=== PATIENT | male | born 1965 | race African-American/Black ===

== ENCOUNTER 2018-12-11 23:47 | Day surgery (SDC) | payer OTHER ==
[~2018-12-11] VITALS: Ht 190.5 cm; Wt 122.5 kg
--- NOTE | 2018-12-12 00:50 | NUR ---
Pt. ambulated into ED w/ c/o feeling like something stuck in throat, states he was eating very large shrimp a few hours ago and began to choke on one, vomited multiple times and still has the feeling that something is stuck, A/Ox4, RR even and unlabored, speaks in clear and complete sentences, denies SOB,
--- NOTE | 2018-12-12 00:51 | NUR ---
at bedside for MSE
--- NOTE | 2018-12-12 03:40 | NUR ---
PAGED [facility]. WAITING FOR FILI POPE NP TO CALL BACK.
--- NOTE | 2018-12-12 04:04 | NUR ---
FILI POPE [facility] FOR GI HAS NOT RETURNED CALL. RE PAGED,WAITING FOR CALL BACK.
--- NOTE | 2018-12-12 04:30 | NUR ---
Felicita Wolf on phone w/ Dr. Gentile
--- NOTE | 2018-12-12 04:50 | NUR ---
Blood specimen drawn and given to phleb. tech.
--- NOTE | 2018-12-12 04:59 | NUR ---
Pt. escorted off unit for CXR by Rad. tech.
[2018-12-12 05:03] LABS: BASOPHILS % (AUTO) 0.6 % (0.0-2.0); EOSINOPHILS # (AUTO) 0.4 K/uL (0.0-0.7); EOSINOPHILS % (AUTO) 5.5 % (0.0-7.0); HEMATOCRIT 46.4 % (36.7-47.1); HEMOGLOBIN 15.2 g/dL (12.5-16.3); LYMPHOCYTES # (AUTO) 2.2 K/uL (20.0-40.0); LYMPHOCYTES % (AUTO) 33.3 % (20.5-51.5); MEAN CORPUSCULAR HEMOGLOBIN 28.7 uug (23.8-33.4); MEAN CORPUSCULAR HGB CONC 33 g/dL (32.5-36.3); MEAN CORPUSCULAR VOLUME 87.6 fL (73.0-96.2); MONOCYTES # (AUTO) 0.5 K/uL (2.0-10.0); MONOCYTES % (AUTO) 7.2 % (0.0-11.0); NEUTROPHILS # (AUTO) 3.5 K/uL (1.8-8.9); NEUTROPHILS % (AUTO) 53.4 % (38.5-71.5); PLATELET COUNT (AUTO) 252 K/uL (152-348); WHITE BLOOD COUNT (AUTO) 6.6 K/uL (3.6-10.2)
--- NOTE | 2018-12-12 05:05 | NUR ---
Pt. back from Radiology
[2018-12-12 05:10] LABS: CREATININE 1.1 mg/dL (0.6-1.3); POTASSIUM 4.1 mmol/L (3.5-5.1)
[2018-12-12 05:16] LABS: BILIRUBIN,DIRECT 0.1 mg/dL (0.0-0.2); BILIRUBIN,TOTAL 0.5 mg/dL (0.2-1.0); TOTAL PROTEIN, SERUM 7.5 g/dL (6.4-8.2)
--- NOTE | 2018-12-12 05:58 | NUR ---
Pt. resting in bed, NAD, awaiting call back from Dr. Garza for GI consult,
--- NOTE | 2018-12-12 06:51 | NUR ---
Pt. resting in bed, no acute distress, IV patent and intact - no s/s infiltration/phlebitis,
--- NOTE | 2018-12-12 07:17 | NUR ---
Gave report to Héctor MANZANARES
--- NOTE | 2018-12-12 07:48 | NUR ---
Dr. Boston spoke with Dr. Garza on the telephone. Plans for endoscopy later today. Pt made aware and to remain NPO.
--- NOTE | 2018-12-12 08:06 | NUR ---
Consent for EGD signed by the pt. Pt alert and oriented during the signing of the consent and is aware of the procedure to be done as explained by Dr. Garza.
--- NOTE | 2018-12-12 09:10 | NUR ---
Pt discharged from ER and sent to OR for EGD procedure with OR nurses. Addendum: 12/12/18 at 0924 by BALBIR Pt stable and nad noted upon leaving the ER.
[2018-12-12] MEDS ORDERED: ONDANSETRON 4 MG/2 ML VIAL IV ONE (09:23)
[2018-12-12] MEDS ORDERED: SEVOFLURANE 250 ML BOTTLE IH ONE (09:23)
[2018-12-12] MEDS ORDERED: PROPOFOL 200 MG/20 ML BOTTLE IV ONE (09:23)
[2018-12-12] MEDS ORDERED: SUCCINYLCHOLINE CHLORIDE 200 MG/10 ML VIAL MC ONE (09:23)
[2018-12-12] MEDS ORDERED: IRR STERIL WATER FOR IRR 1000 ML BOTTLE IR ONE (09:23)
[2018-12-12] MEDS ORDERED: IV NORMAL SALINE 1000 ML BAG IV ONE (09:23)
[2018-12-12] MEDS ORDERED: MIDAZOLAM HCL 2 MG/2 ML VIAL ONE (09:24)
[2018-12-12] MEDS ORDERED: SUCCINYLCHOLINE CHLORIDE 200 MG/10 ML VIAL ONE (09:24)
[2018-12-12] MEDS ORDERED: FENTANYL CITRATE 100 MCG/2 ML AMPUL ONE (09:24)
== END 2018-12-12 11:45 | disposition home or self-care (01) ==
LOC: ER 23:50 → DS 12-12 09:00 → ER 12-12 09:10 → DS 12-12 11:45
PROVIDERS: ATTEND Surgery
DX: K22.2 Esophageal obstruction (principal); T18.128A Food in esophagus causing other injury, initial encounter; K21.0 Gastro-esophageal reflux disease with esophagitis; K44.9 Diaphragmatic hernia without obstruction or gangrene; I10 Essential (primary) hypertension; E11.9 Type 2 diabetes mellitus without complications; X58.XXXA Exposure to other specified factors, initial encounter; Y93.89 Activity, other specified; Y92.89 Other specified places as the place of occurrence of the external cause; Y99.9 Unspecified external cause status; R06.00 Dyspnea, unspecified
CPT/HCPCS: 36415; 43239; 43247; 70490; 71045; 71250; 80048; 80076; 82962; 83690; 84484; 85025; 85730; 88304; 88312; 88342; 93005; J0330 ×2; J2250; J2405; J3010; 70030-TC; A4217; A4663; J3490; J7030